=== PATIENT | male | born 1950 | race Caucasian/White ===

== ENCOUNTER 2017-09-11 13:47 | Inpatient (IN) | payer OTHER ==
[2017-09-11 14:50] LABS: WHITE BLOOD COUNT 10.2 10^3/ul (4.8-10.8)
[2017-09-11 14:50] LABS: ADD MAN DIFF? NO; BASOPHILS % 0.3 % (0.0-2.0); EOSINOPHILS # 0.1 10^3/ul (0.0-0.5); EOSINOPHILS % 0.5 % (0.0-7.0); HEMATOCRIT 46.6 % (42.0-52.0); HEMOGLOBIN 15.9 g/dl (14.0-18.0); LYMPHOCYTES # 2.2 10^3/ul (0.8-2.9); LYMPHOCYTES % 21.8 % (15.0-51.0); MEAN CORPUSCULAR HEMOGLOBIN 30.1 pg (29.0-33.0); MEAN CORPUSCULAR HGB CONC 34.1 g/dl (32.0-37.0); MEAN CORPUSCULAR VOLUME 88.3 fl (82.0-101.0); MEAN PLATELET VOLUME 12.4 fl (7.4-10.4); MONOCYTE # 0.7 10^3/ul (0.3-0.9); MONOCYTES % 6.6 % (0.0-11.0); NEUTROPHIL # 7.2 10^3/ul (1.6-7.5); NEUTROPHILS % 70.4 % (39.0-77.0); PLATELET COUNT 177 10^3/UL (140-415); RED BLOOD COUNT 5.28 10^6/ul (4.70-6.10); RED CELL DISTRIBUTION WIDTH 12.6 % (11.5-14.5)
[2017-09-11] MEDS: FAMOTIDINE 20 MG INJ IV (15:00)
[2017-09-11] MEDS: ONDANSETRON 4 MG INJ IV (15:00)
[2017-09-11] MEDS: morphine 4 MG/ML VIAL IV (15:00)
[2017-09-11] MEDS: ASPIRIN 325 MG TAB PO (15:00)
[2017-09-11 15:06] LABS: ALANINE AMINOTRANSFERASE 60 IU/L (13-69); ALBUMIN 4.4 g/dl (3.3-4.9); ALBUMIN/GLOBULIN RATIO 1.33; ALKALINE PHOSPHATASE 58 IU/L (42-121); ANION GAP 18 (8-16); ASPARTATE AMINO TRANSFERASE 45 IU/L (15-46); BILIRUBIN,INDIRECT 1.2 mg/dl (0-1.1); BILIRUBIN,TOTAL 1.2 mg/dl (0.2-1.3); BLOOD UREA NITROGEN 19 mg/dl (7-20); CALCIUM 9.3 mg/dl (8.4-10.2); CARBON DIOXIDE 24 mmol/L (21-31); CHLORIDE 106 mmol/L (97-110); CREATINE KINASE 70 IU/L (23-200); CREATININE 0.86 mg/dl (0.61-1.24); GLUCOSE 235 mg/dl (70-220); POTASSIUM 4.7 mmol/L (3.5-5.1); SODIUM 143 mmol/L (135-144); TOTAL PROTEIN 7.7 g/dl (6.1-8.1)
[2017-09-11 15:10] LABS: PROTIME 14.4 Sec (11.9-14.9); PT RATIO 1.1
[2017-09-11 15:19] LABS: B-TYPE NATRIURETIC PEPTIDE 1120 PG/ML (0-125); CK INDEX 2.9; TROPONIN-I 0.013 ng/ml (0.000-0.120)
[2017-09-11 15:32] LABS: LIPASE 79 U/L (23-300)
[2017-09-11 15:32] LABS: AMYLASE 54 U/L (11-123)
[2017-09-11] MEDS ORDERED: ONDANSETRON 4 MG INJ IV (18:00)
[2017-09-11] MEDS ORDERED: GLUCOSE GEL 15 GRAM TUBE PO ×2 (18:30)
[2017-09-11] MEDS ORDERED: GLUCOSE GEL 15 GRAM TUBE BUCCAL (18:30)
[2017-09-11] MEDS ORDERED: GLUCAGON 1 MG INJ IM (18:30)
[2017-09-11] MEDS ORDERED: DEXTROSE 50% 50 ML SYRINGE IV ×2 (18:30)
[2017-09-11] MEDS: SOD CHLORIDE 0.45% 1,000 ML IV (18:45)
[2017-09-11] MEDS: PIPER-TAZO 3.375 GM IV (PMX) 100 ML IVPB (18:45)
[2017-09-11] MEDS: INSULIN ASPART [NOVOLOG] 3 ML PEN SC (21:00)
[2017-09-12] MEDS: morphine 2 MG INJ IV ×6 (01:55→19:06)
[2017-09-12] MEDS: ACCU-CHEK XX (02:00)
[2017-09-12] MEDS: ACETAMINOPHEN 325 MG TAB PO ×2 (04:30→20:58)
[2017-09-12 05:42] LABS: ADD MAN DIFF? NO
[2017-09-12 05:47] LABS: WHITE BLOOD COUNT 13.9 10^3/ul (4.8-10.8)
[2017-09-12 05:48] LABS: BASOPHILS % 0.1 % (0.0-2.0); EOSINOPHILS % 0.1 % (0.0-7.0); HEMATOCRIT 43.1 % (42.0-52.0); HEMOGLOBIN 14.3 g/dl (14.0-18.0); LYMPHOCYTES % 7.1 % (15.0-51.0); MEAN CORPUSCULAR HEMOGLOBIN 29.5 pg (29.0-33.0); MEAN CORPUSCULAR HGB CONC 33.2 g/dl (32.0-37.0); MEAN PLATELET VOLUME 12.7 fl (7.4-10.4); MONOCYTE # 0.9 10^3/ul (0.3-0.9); MONOCYTES % 6.4 % (0.0-11.0); NEUTROPHILS % 85.9 % (39.0-77.0); PLATELET COUNT 133 10^3/UL (140-415); RED BLOOD COUNT 4.84 10^6/ul (4.70-6.10); RED CELL DISTRIBUTION WIDTH 12.8 % (11.5-14.5)
[2017-09-12] MEDS: PANTOPRAZOLE (EC) 40 MG TAB PO (06:14)
[2017-09-12 06:15] LABS: ALANINE AMINOTRANSFERASE 85 IU/L (13-69); ALBUMIN 3.9 g/dl (3.3-4.9); ALKALINE PHOSPHATASE 56 IU/L (42-121); ANION GAP 18 (8-16); ASPARTATE AMINO TRANSFERASE 63 IU/L (15-46); BILIRUBIN,INDIRECT 1.7 mg/dl (0-1.1); BILIRUBIN,TOTAL 1.8 mg/dl (0.2-1.3); BLOOD UREA NITROGEN 18 mg/dl (7-20); CALCIUM 9.1 mg/dl (8.4-10.2); CARBON DIOXIDE 26 mmol/L (21-31); CHLORIDE 99 mmol/L (97-110); GLUCOSE 268 mg/dl (70-220); POTASSIUM 4.2 mmol/L (3.5-5.1); SODIUM 139 mmol/L (135-144); TOTAL PROTEIN 6.5 g/dl (6.1-8.1)
[2017-09-12] MEDS ORDERED: ACETAMINOPHEN 325 MG TAB PO (07:00)
[2017-09-12] MEDS: INSULIN ASPART [NOVOLOG] 3 ML PEN SC ×4 (07:38→21:09)
[2017-09-12] MEDS ORDERED: INSULIN GLARGINE [LANtus] 3 ML PEN SC (08:00)
[2017-09-12] MEDS: METOPROLOL 25 MG TAB PO (08:24)
[2017-09-12] MEDS: ASPIRIN 81 MG TAB PO (08:24)
[2017-09-12] MEDS: ONDANSETRON 4 MG INJ IV (09:06)
[2017-09-12] MEDS: SOD CHLORIDE 0.45% 1,000 ML IV ×3 (14:30→19:08)
[2017-09-12] MEDS: MAGNESIUM HYDROXIDE 30ML CUP PO (20:58)
[2017-09-12] MEDS: METOPROLOL 50 MG TAB PO (21:00)
[2017-09-12] MEDS: ATORVASTATIN 40 MG TAB PO (21:11)
[2017-09-12] MEDS: INSULIN GLARGINE [LANtus] 3 ML PEN SC (21:11)
[2017-09-12] MEDS: morphine LIQ (10 MG/5 ML) CUP PO (22:16)
[2017-09-12 22:50] LABS: HEMATOCRIT 43.9 % (42.0-52.0); HEMOGLOBIN 14.6 g/dl (14.0-18.0)
[2017-09-13] MEDS: morphine LIQ (10 MG/5 ML) CUP PO ×3 (00:34→05:24)
[2017-09-13] MEDS: PIPER-TAZO 3.375 GM IV (PMX) 100 ML IVPB ×3 (00:39→11:35)
[2017-09-13] MEDS: ACCU-CHEK XX (02:00)
[2017-09-13] MEDS: NA PHOSPHATE/BIPHOS 133 ML ENEMA PR (02:38)
[2017-09-13] MEDS: PANTOPRAZOLE 40 MG INJ IV (05:24)
[2017-09-13 06:45] LABS: ADD MAN DIFF? NO
[2017-09-13 06:49] LABS: WHITE BLOOD COUNT 11.1 10^3/ul (4.8-10.8)
[2017-09-13 06:49] LABS: BASOPHILS % 0.2 % (0.0-2.0); EOSINOPHILS % 0.3 % (0.0-7.0); HEMOGLOBIN 13.9 g/dl (14.0-18.0); LYMPHOCYTES # 0.8 10^3/ul (0.8-2.9); LYMPHOCYTES % 7.6 % (15.0-51.0); MEAN CORPUSCULAR HEMOGLOBIN 29.8 pg (29.0-33.0); MEAN CORPUSCULAR HGB CONC 33.9 g/dl (32.0-37.0); MONOCYTE # 0.6 10^3/ul (0.3-0.9); MONOCYTES % 5.2 % (0.0-11.0); NEUTROPHIL # 9.5 10^3/ul (1.6-7.5); NEUTROPHILS % 86.2 % (39.0-77.0); PLATELET COUNT 119 10^3/UL (140-415); RED BLOOD COUNT 4.66 10^6/ul (4.70-6.10); RED CELL DISTRIBUTION WIDTH 12.7 % (11.5-14.5)
[2017-09-13 07:20] LABS: PARTIAL THROMBOPLASTIN TIME 33.2 Sec (25.0-35.0); PROTIME 17.4 Sec (11.9-14.9); PT RATIO 1.4
[2017-09-13 07:29] LABS: TROPONIN-I 0.018 ng/ml (0.000-0.120)
[2017-09-13 07:34] LABS: ALANINE AMINOTRANSFERASE 115 IU/L (13-69); ALBUMIN 3.6 g/dl (3.3-4.9); ALBUMIN/GLOBULIN RATIO 1.44; ALKALINE PHOSPHATASE 71 IU/L (42-121); ANION GAP 14 (8-16); ASPARTATE AMINO TRANSFERASE 79 IU/L (15-46); BILIRUBIN,INDIRECT 2.2 mg/dl (0-1.1); BILIRUBIN,TOTAL 5.1 mg/dl (0.2-1.3); BLOOD UREA NITROGEN 15 mg/dl (7-20); CALCIUM 8.7 mg/dl (8.4-10.2); CARBON DIOXIDE 28 mmol/L (21-31); CHLORIDE 100 mmol/L (97-110); GLUCOSE 184 mg/dl (70-220); MAGNESIUM 1.8 mg/dl (1.7-2.5); PHOSPHORUS 2.9 mg/dl (2.5-4.9); POTASSIUM 4.1 mmol/L (3.5-5.1); SODIUM 138 mmol/L (135-144); TOTAL PROTEIN 6.1 g/dl (6.1-8.1)
[2017-09-13 07:50] LABS: LACTATE DEHYDROGENASE 589 IU/L (313-618)
[2017-09-13 07:50] LABS: LIPASE 24 U/L (23-300)
[2017-09-13] MEDS: MAGNESIUM HYDROXIDE 30ML CUP PO (08:51)
[2017-09-13] MEDS: INSULIN ASPART [NOVOLOG] 3 ML PEN SC ×2 (08:52→11:41)
[2017-09-13] MEDS: METOPROLOL 50 MG TAB PO (08:53)
[2017-09-13] MEDS: NICOTINE (14 MG/24 HR) PATCH TRANSDERM (08:53)
[2017-09-13 09:58] LABS: HEMATOCRIT 41.6 % (42.0-52.0); HEMOGLOBIN 14.1 g/dl (14.0-18.0)
[2017-09-13] MEDS ORDERED: LORAZEPAM 2 MG INJ IV (11:00)
[2017-09-13] MEDS ORDERED: BISACODYL 10 MG SUPP PR (12:00)
[2017-09-13] MEDS: IOHEXOL 300MG/ML 150 ML BTL (13:02)
[2017-09-13] MEDS: morphine 2 MG INJ IV (14:11)
[2017-09-13] MEDS ORDERED: INSULIN GLARGINE [LANtus] 3 ML PEN SC (20:00)
[2017-09-15] MEDS ORDERED: ASPIRIN 81 MG TAB PO (09:00)
== END 2017-09-13 15:25 | disposition other institution (70) | DRG 313 ==
LOC: MS3 17:49 → MS4 09-13 00:20 → E/R 13:47
DX: R07.89 Other chest pain (principal); K57.31 Diverticulosis of large intestine without perforation or abscess with bleeding; K62.5 Hemorrhage of anus and rectum; Z72.0 Tobacco use; Z95.1 Presence of aortocoronary bypass graft; E11.9 Type 2 diabetes mellitus without complications; I10 Essential (primary) hypertension; Z95.5 Presence of coronary angioplasty implant and graft; I48.91 Unspecified atrial fibrillation; K80.50 Calculus of bile duct without cholangitis or cholecystitis without obstruction; E80.6 Other disorders of bilirubin metabolism
CPT/HCPCS: 36415; 71045; 74177; 74181; 76705; 80053; 82150; 82550; 82553; 82962; 83615; 83690; 83735; 83880; 84100; 84484; 85014; 85018; 85025; 85610; 85730; 87040; 93005; 96374; 96375; 99285-25